=== PATIENT | male | born 1975 | race Caucasian/White ===

== ENCOUNTER 2019-05-05 17:39 | Emergency (ER) | payer OTHER ==
[~2019-05-05] VITALS: Ht 170.2 cm; Wt 79.4 kg
[2019-05-05 17:52] VITALS: BP 124/75
--- NOTE | 2019-05-05 20:16 | NUR ---
PT AMBULATED TO [facility]
--- NOTE | 2019-05-05 20:18 | NUR ---
Dr. Martinez examining patient.
[2019-05-05] MEDS ORDERED: LIDOCAINE MPF 1% 10 MG/ML VIAL INJ ONE ×3 (20:35→20:50)
--- NOTE | 2019-05-05 20:42 | NUR ---
2ND LIDOCAINE PULLED FROM OMNICELL PER DR GAMBINO ORDER
[2019-05-05] MEDS ORDERED: BACITRACIN OINT 500 UNITS/GM PKT TP ONE ×2 (20:50→20:55)
--- NOTE | 2019-05-05 21:00 | NUR ---
PT CAME INTO ER WITH C/O LEFT #1 TOE PAIN S/P DROPPING APPROX 35LB MOTOR ON IT. PT AERT AND ABLE TO ANSWER QUESTIONS APPROPRIATELY. ERMD MADE AWARE OF STATUS, SAFETY MEASURES IN PLACE.
[2019-05-05 21:19] VITALS: BP 124/75
--- NOTE | 2019-05-05 21:19 | NUR ---
Patient discharged with v/s stable. Written and verbal after care instructions given and explained. Patient alert, oriented and verbalized understanding of instructions. Ambulatory with steady gait. All questions addressed prior to discharge. ID band removed. Patient advised to follow up with PMD. Rx of NAPROSYN WAS given. Patient educated on indication of medication including possible reaction and side effects. Opportunity to ask questions provided and answered. DR. GAMBINO ASSESSED PT AND D/C PT.
== END 2019-05-05 21:19 | disposition home or self-care (01) ==
LOC: MED 17:39
DX: S91.232A Puncture wound without foreign body of left great toe with damage to nail, initial encounter (principal); W22.8XXA Striking against or struck by other objects, initial encounter; Y93.89 Activity, other specified; Y92.89 Other specified places as the place of occurrence of the external cause; Y99.8 Other external cause status
CPT/HCPCS: 11730; 73660; 99283; J2001; Q0092